=== PATIENT | female | born 1985 | race Caucasian/White ===

== ENCOUNTER 2024-04-11 20:28 | Emergency (ER) | payer MEDICAID ==
[~2024-04-11] VITALS: Ht 167.6 cm; Wt 72.7 kg
[2024-04-11 22:10] LABS: Basophils # (auto) 0 10 ^3/uL (0-0.2); Basophils % (auto) 0.3 % (0.0-2.0); Eosinophils # (auto) 0.1 10 ^3/uL (0-0.8); Eosinophils % (auto) 0.6 % (0.0-7.0); Hematocrit 36.5 % (36.0-46.0); Hemoglobin 12.2 g/dL (12.2-16.2); Lymphocytes # (auto) 1.8 10 ^3/uL (0.4-5.4); Lymphocytes % (auto) 11.6 % (10.0-50.0); Mean Corpuscular Hemoglobin 29.7 pg (28.0-32.0); Mean Corpuscular Hgb Conc. 33.5 g/dL (32.0-36.0); Mean Corpuscular Volume 88.5 fL (80.0-100.0); Monocytes # (auto) 1.2 10 ^3/uL (0-1.3); Monocytes % (auto) 7.8 % (0.0-12.0); Neutrophils # (auto) 12.6 10 ^3/uL (1.6-8.6); Neutrophils % (auto) 79.7 % (37.0-80.0); Platelet Count (auto) 310 10^3/uL (140-450); Red Blood Cells 4.12 10^6/uL (4.0-5.20); Red Cell Distribution Width 13.2 % (11.8-14.3); White Blood Cell 15.9 10^3/uL (4.4-10.8)
[2024-04-11 22:26] LABS: Alanine Aminotransferase 14 U/L (7-40); Albumin 4.3 g/dL (3.2-4.8); Alkaline Phosphatase 59 U/L (46-116); Anion Gap 9 (5-15); Aspartate Aminotransferase 13 U/L (13-40); BUN/Creatinine Ratio 12.5 (10.0-20.0); Bilirubin, Total 0.2 mg/dL (0.2-1.0); Blood Urea Nitrogen 11 mg/dL (9-23); Calcium 9.3 mg/dL (8.7-10.4); Carbon Dioxide 22 mmol/L (20-30); Chloride 106 mmol/L (98-107); Glucose 128 mg/dL (74-106); Potassium 4.1 mmol/L (3.5-5.1); Sodium 137 mmol/L (136-145)
[2024-04-12] MEDS: SODIUM CHLORIDE 0.9% 2,000 ML IV ONE (00:10)
[2024-04-12] MEDS ORDERED: SILV1CRE82 TOP (04:48)
[2024-04-12 05:34] VITALS: BP 104/61; PULSE 89; RESP 16; TEMP 98.2; O2SAT 96
== END 2024-04-12 05:38 | disposition home or self-care (01) ==
LOC: ER 20:28 → EDBD 20:28 → ER 04-12 05:38
DX: T22.212A Burn of second degree of left forearm, initial encounter (principal); R10.2 Pelvic and perineal pain; T22.211A Burn of second degree of right forearm, initial encounter; T31.0 Burns involving less than 10% of body surface; F17.210 Nicotine dependence, cigarettes, uncomplicated; Z59.00 Homelessness unspecified; X08.8XXA Exposure to other specified smoke, fire and flames, initial encounter; Y93.89 Activity, other specified; Y92.89 Other specified places as the place of occurrence of the external cause; Y99.8 Other external cause status
CPT/HCPCS: 36415; 80053; 83874; 84702; 85025; 96360; 96361; 99283; J7030